=== PATIENT | female | born 1995 | race African-American/Black ===

== ENCOUNTER 2019-01-29 13:55 | Observation (INO) | payer MEDICAID ==
[~2019-01-29] VITALS: Ht 167.6 cm; Wt 88.0 kg
[2019-01-29] MEDS ORDERED: PREN-96 PO (14:39)
[2019-01-29] MEDS ORDERED: BETAMETHASONE ACET (6MG/ML) 5ML VIAL IM SCH (14:40)
== END 2019-01-29 16:05 | disposition home or self-care (01) | DRG 566 ==
LOC: LDRP 13:55
PROVIDERS: ADMIT Obstetrics & Gynecology; ATTEND Obstetrics & Gynecology
DX: O99.013 Anemia complicating pregnancy, third trimester (principal); Z3A.32 32 weeks gestation of pregnancy
CPT/HCPCS: 59025; 81002; G0378; J0702; 96372

== ENCOUNTER 2019-01-30 19:56 | Observation (INO) | payer MEDICAID ==
[~2019-01-30] VITALS: Ht 167.6 cm; Wt 88.0 kg
[~2019-01-30 19:56] MED LIST: PREN-96 PO
[2019-01-30] MEDS ORDERED: BETAMETHASONE ACET (6MG/ML) 5ML VIAL IM ONE (21:30)
== END 2019-01-30 22:39 | disposition home or self-care (01) | DRG 563 ==
LOC: LDRP 19:56
PROVIDERS: ADMIT Specialist; ATTEND Specialist
DX: O60.03 Preterm labor without delivery, third trimester (principal); Z3A.32 32 weeks gestation of pregnancy
CPT/HCPCS: 59025; 96372; G0378; J0702

== ENCOUNTER 2019-03-26 09:55 | Observation (INO) | payer MEDICAID | END 2019-03-26 13:57 | disposition home or self-care (01) | DRG 566 | LOC: LDRP 09:55 | PROVIDERS: ADMIT Obstetrics & Gynecology; ATTEND Obstetrics & Gynecology | DX: O48.0 Post-term pregnancy (principal); Z3A.40 40 weeks gestation of pregnancy | CPT/HCPCS: 59025; 76818; 81002; G0378 ==

== ENCOUNTER 2019-03-28 01:12 | Inpatient (IN) | payer MEDICAID ==
[~2019-03-28] VITALS: Ht 165.1 cm; Wt 91.2 kg
[2019-03-28] MEDS ORDERED: PENICILLIN G POT 5MIL/D5 50ML 0 ML IV ONE (02:52)
[2019-03-28] MEDS ORDERED: ceFAZolin 1GM/50ML 50 ML IV ONE (02:53)
[2019-03-28] MEDS ORDERED: LACTATED RINGER'S 1,000 ML IV SCH (02:54)
[2019-03-28] MEDS ORDERED: LACT. RINGERS/OXYTOCIN 20UNITS 1,000 ML IV SCH (02:54)
[2019-03-28] MEDS ORDERED: PHISODERM TOP SOLN 240ML BTL TOP PRN (03:00)
[2019-03-28] MEDS ORDERED: NALBUPHINE HCL 10 MG/1ml INJECTION IV PRN ×2 (03:00→07:15)
[2019-03-28] MEDS ORDERED: DERMOPLAST 60ML BOTTLE TOP PRN (03:00)
[2019-03-28] MEDS ORDERED: LIDOCAINE 2%HCL (LOCAL ANESTH.) INJ 20ML MDV ID ONE (03:00)
[2019-03-28] MEDS ORDERED: WITCH HAZEL-GLYCERIN PAD TOP PRN (03:00)
[2019-03-28 03:35] LABS: Basophils # (auto) 0 uL; Basophils % (auto) 0.3 % (0.0-2.0); Eosinophils # (auto) 0.1 uL; Hemoglobin 12.1 g/dL (12.2-16.2); Lymphocytes # (auto) 2.1 uL; Mean Corpuscular Hemoglobin 25.7 pg (28.0-32.0); Monocytes # (auto) 0.5 uL; Neutrophils # (auto) 3.8 uL; Nucleated Red Blood Cells % 0.1 %; Platelet Count (auto) 202 10^3/uL (140-450); Red Blood Cells 4.71 10^6/uL (4.0-5.20); White Blood Cell 6.5 10^3/uL (4.4-10.8)
[2019-03-28 03:37] LABS: Eosinophils % (auto) 0.8 % (0.0-7.0); Hematocrit 37.8 % (36.0-46.0); Lymphocytes % (auto) 31.8 % (10.0-50.0); Mean Corpuscular Volume 80.3 fL (80.0-100.0); Monocytes % (auto) 7.9 % (0.0-12.0); Neutrophils % (auto) 59.2 % (37.0-80.0); Red Cell Distribution Width 15.8 % (11.8-14.3)
[2019-03-28 03:39] LABS: Urine Bacteria FEW /hpf (None Seen); Urine Blood Negative /uL (Negative); Urine Specific Gravity 1.003 (1.001-1.035); Urine WBC <1 /hpf (0 - 5)
[2019-03-28 03:49] LABS: INR < 0.93 (0.9-1.15); Partial Thromboplastin Time 28.7 sec (23.64-32.05)
[2019-03-28 03:57] LABS: Albumin 2.7 g/dL (3.4-5.0); Calcium 8.8 mg/dL (8.5-10.1)
[2019-03-28 03:59] LABS: BUN/Creatinine Ratio 7.1; Bilirubin, Total 0.2 mg/dL (0.2-1.0); Total Protein 6.9 g/dL (6.4-8.2)
[2019-03-28 04:24] LABS: Alcohol, Urine < 3.0 mg/dL (0-5); Amphetamine Screen, Urine NEGATIVE (NEGATIVE); Barbiturate Scree,Urine NEGATIVE (NEGATIVE); Cannabinoid Screen, Urine NEGATIVE (NEGATIVE); Cocaine Screen, Urine NEGATIVE (NEGATIVE); Opiate Scree,Urine NEGATIVE (NEGATIVE); Phencyclidine Screen, Urine NEGATIVE (NEGATIVE)
[2019-03-28 04:33] LABS: Benzodiazephine Screen, Urine NEGATIVE (NEGATIVE)
[2019-03-28] MEDS ORDERED: NALBUPHINE HCL 10 MG/1ml INJECTION ONE (04:58)
[2019-03-28] MEDS ORDERED: ceFAZolin 1GM/50ML 50 ML IV SCH ×2 (06:00→11:00)
[2019-03-28] MEDS ORDERED: fentaNYL CITRATE 100 MCG/2 ML VL IV ONE (07:00)
[2019-03-28] MEDS ORDERED: ePHEDrine SULFATE 50 MG/ML AMP IV ONE (07:00)
[2019-03-28] MEDS ORDERED: LIDOCAINE HCL 2 %PF INJ 10ML AMP IJ ONE (07:00)
[2019-03-28] MEDS ORDERED: fentaNYL W ROPIVACAINE 150 ML EPI SCH (07:00)
--- NOTE | 2019-03-28 10:43 | NUR ---
Teaching: Reviewed information in [employer] booklet with patient. Discussed benefits of and risks associated with not . Discussed different positions, proper latch, feeding cues, and baby-led . Provided information of medication side effects related to . All questions and concerns addressed at this time. Patient verbalized understanding of information.
--- NOTE | 2019-03-28 12:00 | NUR ---
Ambulation: Patient OOB with standby assistance by RN. Patient ambulated to bathroom with steady gait. Patient able to void without difficulty. [facility] teaching provided with returned demonstration by patient. Clean gown provided and bed linen changed. Patient ambulated back to bed with steady gait and no distress noted.
[2019-03-28 12:30] VITALS: BP 116/75
[2019-03-28 15:26] VITALS: BP 118/81
[2019-03-28] MEDS: IBUPROFEN 600 MG TAB PO PRN ×2 (17:43→23:00)
[2019-03-28 19:00] VITALS: BP 121/68
[2019-03-28 22:57] VITALS: BP 109/72
[2019-03-29 02:39] VITALS: BP 100/65
[2019-03-29] MEDS: IBUPROFEN 600 MG TAB PO PRN ×3 (05:27→22:24)
--- NOTE | 2019-03-29 05:29 | NUR ---
IV removal IV DC'd with sterile technique, catheter fully intact. Pressure dressing applied to site. Patient tolerated procedure well.
[2019-03-29 07:00] VITALS: BP 100/57
[2019-03-29 11:00] VITALS: BP 112/70
[2019-03-29 12:09] LABS: RPR Non Reactive (Non Reactive)
[2019-03-29 15:00] VITALS: BP 118/74
[2019-03-29 19:00] VITALS: BP 109/73
[2019-03-29 22:40] VITALS: BP 118/73
[2019-03-30 03:00] VITALS: BP 91/54
--- NOTE | 2019-03-30 06:10 | NUR ---
Report received from Korey Boone RN on stable pt. Assumed care. Addendum: 03/30/19 at 0626 by Evon Hart RN Amended: Links added.
[2019-03-30 06:40] VITALS: BP 113/70
[2019-03-30 10:59] VITALS: BP 104/68
[2019-03-30] MEDS: IBUPROFEN 600 MG TAB PO PRN (13:14)
[2019-03-30 15:12] VITALS: BP 110/64
--- NOTE | 2019-03-30 18:25 | NUR ---
Report given to Casi Joe RN on stable pt. Relinquished care. Addendum: 03/30/19 at 1843 by Evon Hart RN Amended: Links added.
[2019-03-30 19:00] VITALS: BP 121/81
--- NOTE | 2019-03-30 21:50 | NUR ---
Discharge: Discharge instructions given as ordered. Pt encouraged to follow up with [facility] as instructed. All questions and concerns addressed. Patient verbalized understanding. Medication reconciliation completed and copy given to patient. All required/requested vaccines given and copies of vaccinations given to patient. Patient encouraged to prepare to depart unit.
[2019-03-30 22:07] VITALS: BP 121/81
--- NOTE | 2019-03-30 22:07 | NUR ---
Discharge: Patient taken to vehicle via ambulation per patient preference with all personal belongings, accompanied by staff and family member. No distress noted at time of departure, no adverse changes in status since initial assessment.
== END 2019-03-30 22:07 | disposition home or self-care (01) | DRG 560 ==
LOC: OBSVTOIN 01:12 → LDRP 01:12
PROVIDERS: ADMIT Specialist; ATTEND Specialist
PROC: 10E0XZZ Delivery of Products of Conception, External Approach (ICD-10-PCS; principal; 2019-03-28)
PROC: 10907ZC Drainage of Amniotic Fluid, Therapeutic from Products of Conception, Via Natural or Artificial Opening (ICD-10-PCS; 2019-03-28)
PROC: 3E0R3BZ Introduction of Anesthetic Agent into Spinal Canal, Percutaneous Approach (ICD-10-PCS; 2019-03-28)
PROC: 00HU33Z Insertion of Infusion Device into Spinal Canal, Percutaneous Approach (ICD-10-PCS; 2019-03-28)
DX: O77.0 Labor and delivery complicated by meconium in amniotic fluid (principal); O69.81X0 Labor and delivery complicated by cord around neck, without compression, not applicable or unspecified; O99.824 Streptococcus B carrier state complicating childbirth; Z37.0 Single live birth; Z3A.40 40 weeks gestation of pregnancy
CPT/HCPCS: 36415; 59409; 62282; 80053; 80307; 81001; 84112; 85025; 85610; 85730; 86592; 86850; 86900; 86901; 94760; 96361; G0378; J0690; J2540; J2590; J3010

== ENCOUNTER 2020-12-13 19:02 | Emergency (ER) | payer MEDICAID ==
[~2020-12-13] VITALS: Ht 167.6 cm; Wt 79.4 kg
[2020-12-13 19:14] VITALS: BP 108/78
[2020-12-13 20:01] LABS: Basophils # (auto) 0 10 ^3/uL (0-0.2); Basophils % (auto) 0.5 % (0.0-2.0); Eosinophils # (auto) 0.2 10 ^3/uL (0-0.8); Hemoglobin 12.2 g/dL (12.2-16.2); White Blood Cell 5.9 10^3/uL (4.4-10.8)
[2020-12-13 20:04] LABS: Eosinophils % (auto) 2.8 % (0.0-7.0); Hematocrit 37.5 % (36.0-46.0); Lymphocytes # (auto) 2.4 10 ^3/uL (0.4-5.4); Mean Corpuscular Hemoglobin 24.7 pg (28.0-32.0); Mean Corpuscular Hgb Conc. 32.5 g/dL (32.0-36.0); Mean Corpuscular Volume 75.8 fL (80.0-100.0); Monocytes # (auto) 0.3 10 ^3/uL (0-1.3); Monocytes % (auto) 5.1 % (0.0-12.0); Neutrophils % (auto) 51.6 % (37.0-80.0); Nucleated Red Blood Cells % 0.2 %; Red Blood Cells 4.94 10^6/uL (4.0-5.20); Red Cell Distribution Width 14.7 % (11.8-14.3)
[2020-12-13 20:16] LABS: Chloride 109 mmol/L (98-107); Sodium 139 mmol/L (136-145)
[2020-12-13 20:25] LABS: Alanine Aminotransferase 16 U/L (13-56); Albumin 3.5 g/dL (3.4-5.0); Alkaline Phosphatase 78 U/L (45-117); Anion Gap 2 (5-15); Aspartate Aminotransferase 10 U/L (15-37); BUN/Creatinine Ratio 9.1; Bilirubin, Total 0.2 mg/dL (0.2-1.0); Blood Urea Nitrogen 8 mg/dL (7-18); Calcium 8.3 mg/dL (8.5-10.1); Carbon Dioxide 28 mmol/L (21-32); GFR African American 100 mL/min; GFR Non-African American 83 mL/min; Glucose 91 mg/dL (74-106); Total Protein 7.5 g/dL (6.4-8.2)
== END 2020-12-14 00:02 | disposition home or self-care (01) ==
LOC: ER 19:04
DX: R07.89 Other chest pain (principal); Z79.899 Other long term (current) drug therapy
CPT/HCPCS: 36415; 71046; 80053; 84484; 85025; 93005